=== PATIENT | female | born 1945 | race Asian ===

== ENCOUNTER 2025-02-14 19:00 | Inpatient (IN) | payer OTHER ==
[~2025-02-14] VITALS: Ht 149.9 cm; Wt 60.6 kg
[2025-02-14 19:52] LABS: BASOPHILS # (AUTO) 0.1 K/UL (0.0-0.2); BASOPHILS % (AUTO) 0.7 % (0.0-2.0); DIFFERENTIAL COMMENT 1; EOSINOPHILS # (AUTO) 0.1 K/uL (0.0-0.7); EOSINOPHILS % (AUTO) 1.2 % (0.0-7.0); HEMATOCRIT 36.8 % (31.2-41.9); HEMOGLOBIN 12.5 g/dL (10.9-14.3); LYMPHOCYTES # (AUTO) 2.7 K/uL (0.8-4.8); LYMPHOCYTES % (AUTO) 36.6 % (20.5-51.5); MEAN CORPUSCULAR HEMOGLOBIN 30.7 uug (24.7-32.8); MEAN CORPUSCULAR HGB CONC 34 g/dL (32.3-35.6); MEAN CORPUSCULAR VOLUME 90.5 fL (75.5-95.3); MONOCYTES # (AUTO) 0.5 K/uL (0.1-1.30); MONOCYTES % (AUTO) 6.5 % (0.0-11.0); NEUTROPHILS # (AUTO) 4.1 K/uL (1.8-8.9); PLATELET COUNT (AUTO) 186 K/uL (179-408); RED BLOOD CELL COUNT(AUTO) 4.07 MIL/uL (3.63-4.92); RED CELL DISTRIBUTION WIDTH 13.8 % (12.3-17.7); WHITE BLOOD COUNT (AUTO) 7.4 K/uL (3.8-11.8)
[2025-02-14 19:53] LABS: CALCIUM 9.5 mg/dL (8.5-10.1); CARBON DIOXIDE 18 mmol/L (21-32); CHLORIDE 93 mmol/L (98-107); GLUCOSE 131 mg/dL (74-106); POTASSIUM 3.9 mmol/L (3.5-5.1); SODIUM SERUM 127 mmol/L (136-145); UREA NITROGEN, BLOOD 12 mg/dL (7-18)
[2025-02-14 19:59] LABS: ALANINE AMINOTRANSFERASE 18 U/L (14-59); ALKALINE PHOSPHATASE 64 U/L (50-136); ASPARTATE AMINOTRANSFERASE 29 U/L (15-37); BILIRUBIN,DIRECT 0.2 mg/dL (0.0-0.2); BILIRUBIN,TOTAL 0.8 mg/dL (0.2-1.0); LIPASE 72 U/L (16-77); TOTAL PROTEIN, SERUM 7.5 g/dL (6.4-8.2)
[2025-02-14] MEDS: MORPHINE SULFATE 2 MG/1 ML DISP.SYRIN IV ONE (20:48)
[2025-02-14] MEDS: IV NORMAL SALINE 500 ML IV ONE (20:50)
[2025-02-14] MEDS ORDERED: PANT20TA2 PO (21:00)
[2025-02-14] MEDS ORDERED: APIX5TAB PO (21:00)
[2025-02-14] MEDS ORDERED: GABA-532 PO (21:00)
[2025-02-14] MEDS ORDERED: CIPR-263 PO (21:00)
[2025-02-14] MEDS ORDERED: ASPI81TA31 PO (21:00)
[2025-02-14] MEDS ORDERED: ATOR40TA PO (21:00)
[2025-02-14] MEDS ORDERED: ACET-3117 PO (21:00)
[2025-02-14] MEDS ORDERED: CARV3.122 PO (21:00)
[2025-02-14] MEDS ORDERED: CHOL100034 PO (21:00)
[2025-02-14] MEDS ORDERED: AMLO-212 PO (21:00)
[2025-02-14] MEDS ORDERED: IV NORMAL SALINE 250 ML IV ONE (21:01)
[2025-02-14] MEDS ORDERED: SWABABLE VALVE TRANSFER SET EA MC ONE (21:02)
[2025-02-14] MEDS ORDERED: IOHEXOL 350 100 ML INFUS..BTL ONE (21:02)
[2025-02-14 21:53] LABS: *BILIRUBIN,URIN NEGATIVE (NEGATIVE); *BLOOD, URINE NEGATIVE (NEGATIVE); *CLARITY,URINE CLEAR (CLEAR); *COLOR,URINE YELLOW (YELLOW); *KETONES,URINE NEGATIVE (NEGATIVE); *PROTEIN,URINE 1+ (NEGATIVE); *UROBILINOGEN,URINE 0.2 E.U./dl (NORMAL); LEUKOCYTE ESTERASE ,URINE NEGATIVE (NEGATIVE); NITRITE, URINE NEGATIVE (NEGATIVE); UGLUCOSE NEGATIVE (NEGATIVE)
[2025-02-14 22:06] LABS: BACTERIA,URINE NONE SEEN /HPF (NONE SEEN); RBC,URINE NONE SEEN /HPF (0-3); SQUAMOUS EPITHELIAL CELL,UR FEW /HPF (NONE SEEN); WBC,URINE 0-3 /HPF (0-3)
[2025-02-14] MEDS ORDERED: HYDROMORPHONE 1 MG/1 ML DISP.SYRIN ONE (23:54)
[2025-02-14] MEDS: HYDROMORPHONE 1 MG/1 ML DISP.SYRIN IV ONE (23:56)
[2025-02-15] MEDS ORDERED: hydrALAZINE HCL 20 MG/1 ML VIAL IV PRN (00:15)
[2025-02-15] MEDS: ONDANSETRON 4 MG/2 ML VIAL IV PRN (00:38)
[2025-02-15 01:15] VITALS: BP 139/70; TEMP 97.4; O2SAT 97
[2025-02-15 04:33] VITALS: BP 141/74; TEMP 97.9; O2SAT 99
[2025-02-15] MEDS: MORPHINE SULFATE 2 MG/1 ML DISP.SYRIN IVP PRN (07:27)
[2025-02-15] MEDS: DOCUSATE SODIUM 100 MG CAPSULE PO SCH (08:41)
[2025-02-15] MEDS: ASPIRIN 81 MG TAB.CHEW PO SCH (08:41)
[2025-02-15] MEDS: AMLODIPINE 5 MG TABLET PO SCH (08:42)
[2025-02-15] MEDS: CARVEDILOL 3.125 MG TABLET PO SCH (08:42)
[2025-02-15] MEDS: HEPARIN SODIUM,PORCINE 5,000 UNITS/ML VIAL SQ SCH (08:52)
[2025-02-15 11:08] VITALS: BP 114/60; TEMP 98.6; O2SAT 99
[2025-02-15 15:21] VITALS: BP 106/54; TEMP 98.4; O2SAT 97
[2025-02-15] MEDS ORDERED: BISACODYL 10 MG SUPP.RECT RC PRN (15:45)
[2025-02-15 15:55] LABS: *SODIUM RNDM,URINE 56 mmol/L (40-220)
[2025-02-15] MEDS: BISACODYL 10 MG SUPP.RECT RC ONE (16:35)
[2025-02-15] MEDS: GABAPENTIN 100 MG CAPSULE PO SCH (20:11)
[2025-02-15] MEDS: ATORVASTATIN 40 MG TABLET PO SCH (20:11)
[2025-02-15 20:24] VITALS: BP 133/61; TEMP 97.9; O2SAT 100
[2025-02-16 05:16] VITALS: BP 131/68; TEMP 97.3; O2SAT 100
[2025-02-16 07:23] LABS: BILIRUBIN,TOTAL 0.7 mg/dL (0.2-1.0); CALCIUM 9.7 mg/dL (8.5-10.1); CARBON DIOXIDE 23 mmol/L (21-32); CHLORIDE 96 mmol/L (98-107); CREATININE 0.9 mg/dL (0.6-1.3); GLUCOSE 113 mg/dL (74-106); PHOSPHOROUS 5.2 mg/dL (2.5-4.9); SODIUM SERUM 130 mmol/L (136-145); UREA NITROGEN, BLOOD 21 mg/dL (7-18); URIC ACID 4.5 mg/dL (2.6-6.0)
[2025-02-16 07:24] LABS: ALANINE AMINOTRANSFERASE 20 U/L (14-59); ALBUMIN 3.7 g/dL (3.4-5.0); ALKALINE PHOSPHATASE 61 U/L (50-136); ASPARTATE AMINOTRANSFERASE 42 U/L (15-37); BILIRUBIN,DIRECT 0.2 mg/dL (0.0-0.2); CHOLESTEROL 115 mg/dL (<200); HDL CHOLESTEROL 43 mg/dL (40-60); MAGNESIUM 2.3 mg/dL (1.8-2.4); TOTAL PROTEIN, SERUM 7.3 g/dL (6.4-8.2); TRIGLYCERIDES 133 MG/DL (30-150)
[2025-02-16 07:28] LABS: POTASSIUM 4.4 mmol/L (3.5-5.1)
[2025-02-16 08:04] LABS: BASOPHILS # (AUTO) 0.1 K/UL (0.0-0.2); EOSINOPHILS # (AUTO) 0.2 K/uL (0.0-0.7); EOSINOPHILS % (AUTO) 3.5 % (0.0-7.0); HEMATOCRIT 34.2 % (31.2-41.9); HEMOGLOBIN 11.7 g/dL (10.9-14.3); LYMPHOCYTES # (AUTO) 1.9 K/uL (0.8-4.8); LYMPHOCYTES % (AUTO) 31.8 % (20.5-51.5); MEAN CORPUSCULAR HEMOGLOBIN 30.8 uug (24.7-32.8); MEAN CORPUSCULAR HGB CONC 34 g/dL (32.3-35.6); MONOCYTES # (AUTO) 0.5 K/uL (0.1-1.30); MONOCYTES % (AUTO) 8.2 % (0.0-11.0); NEUTROPHILS # (AUTO) 3.4 K/uL (1.8-8.9); NEUTROPHILS % (AUTO) 55.5 % (38.5-71.5); PLATELET COUNT (AUTO) 187 K/uL (179-408); RED CELL DISTRIBUTION WIDTH 13.8 % (12.3-17.7)
[2025-02-16 08:08] LABS: THYROID STIMULATING HORMONE 7.942 mIU/mL (0.358-3.740)
[2025-02-16 08:30] VITALS: BP 138/74; TEMP 97.7; O2SAT 98
[2025-02-16 10:57] VITALS: BP 142/67; TEMP 98.2; O2SAT 97
[2025-02-16 15:09] VITALS: BP 104/60; TEMP 98.4; O2SAT 97
[2025-02-16 20:06] VITALS: BP 107/68; TEMP 98.4; O2SAT 99
[2025-02-17 06:03] VITALS: BP 137/66; TEMP 97.6; O2SAT 99
[2025-02-17 11:08] VITALS: BP 118/71; TEMP 98.2; O2SAT 95
[2025-02-17] MEDS ORDERED: LIDO30AD10 TP (13:16)
[2025-02-17 15:19] VITALS: BP 104/65; TEMP 98.4; O2SAT 97
[2025-02-17] MEDS: ACETAMINOPHEN 325 MG TABLET PO PRN (15:35)
[2025-02-17 17:00] VITALS: BP 104/65
[2025-02-17] MEDS: LIDOCAINE 5% PATCH TD SCH (17:00)
== END 2025-02-17 17:05 | disposition home health service (06) | DRG 347 ==
LOC: ER 19:00 → MEDSURG3 02-15 00:12
PROVIDERS: ADMIT Internal Medicine; ATTEND Internal Medicine
DX: M51.361 Other intervertebral disc degeneration, lumbar region with lower extremity pain only (principal); D68.59 Other primary thrombophilia; F01.50 Vascular dementia, unspecified severity, without behavioral disturbance, psychotic disturbance, mood disturbance, and anxiety; E87.1 Hypo-osmolality and hyponatremia; I69.351 Hemiplegia and hemiparesis following cerebral infarction affecting right dominant side; M48.56XA Collapsed vertebra, not elsewhere classified, lumbar region, initial encounter for fracture; I11.9 Hypertensive heart disease without heart failure; D18.09 Hemangioma of other sites; Z66 Do not resuscitate; Z74.09 Other reduced mobility; K21.9 Gastro-esophageal reflux disease without esophagitis; E78.5 Hyperlipidemia, unspecified; M84.48XA Pathological fracture, other site, initial encounter for fracture; Z79.01 Long term (current) use of anticoagulants; Z90.49 Acquired absence of other specified parts of digestive tract; E66.9 Obesity, unspecified; Z68.27 Body mass index [BMI] 27.0-27.9, adult; K38.1 Appendicular concretions; K59.00 Constipation, unspecified
CPT/HCPCS: 36415; 83690; 83735; 84100; 84300; 84443; 84550; 85025; 85730; A4606; A4663; G0378; J1171; J1644; J2270; J2405; J7040; Q9967